=== PATIENT | female | born 1990 | race Caucasian/White ===

== ENCOUNTER → 2017-02-12 | Outpatient (CLI) | payer MEDICAID ==
[~2017-02-12] MED LIST: NAPR500T PO
--- NOTE | 2017-02-12 11:11 | REP ---
Clinical: Left lower quadrant pain. Technique: Real time ramirez scale ultrasound examination using curved array transducer Findings: The bilateral kidneys are normal in contour, size, echogenicity, and reniform shape without hydronephrosis, nephrolithiasis, cystic or renal mass lesion. No perinephric fluid collections are identified. Right kidney measures 12.9 x 6.1 x 6.3 cm. Left kidney measures 12.1 x 6.1 x 6.6 cm. The bladder is incompletely distended but grossly normal. Impression: Normal renal ultrasound. Signed by Jeevan Cabrera MD 02/12/2017 11:02 A
--- NOTE | 2017-02-12 12:03 | REP ---
Clinical: Left lower quadrant pain . Technique: Transabdominal pelvic ultrasound followed by transvaginal examination for better evaluation of the endometrium and adnexa with color Doppler evaluation of the ovaries. Findings: Bladder is unremarkable and measures 8.8 x 2.5 x 3.2 cm . Possibly septated retroverted uterus measures 7.4 x 3.6 x 5.8 cm . The endometrial complex measures 1.4 mm thickness. No discrete uterine or endometrial abnormalities are appreciated. Bilateral ovaries are normal in appearance and vascularity without evidence for torsion. Right ovary measures 4.4 x 2.5 x 4.3 cm with 1.8 cm dominant follicle ; R I = 0.38. Left ovary measures 3.2 x 1.9 x 2.6 cm ; R I = 0.55. Small amount of free fluid in the right lydia pelvis likely physiologic. Impression: Cannot exclude septate uterus. Otherwise normal pelvic ultrasound. Signed by Jeevan Cabrera MD 02/12/2017 11:54 A
== END ==
LOC: M RAD 09:59
PROVIDERS: ATTEND Family Medicine
DX: R10.32 Left lower quadrant pain (principal)

== ENCOUNTER 2017-02-14 20:38 | Emergency (ER) | payer MEDICAID ==
[~2017-02-14] VITALS: Ht 172.7 cm; Wt 88.8 kg
--- NOTE | 2017-02-14 21:29 | REP ---
Clinical: Left renal colic. Comparison: 02/16/2016. Findings: Lung bases are clear. Visualized heart and pericardium normal. Liver, spleen, pancreas, gallbladder, bilateral adrenal glands and kidneys are normal. No hydronephrosis, perinephric stranding, intrarenal or obstructing ureteral calculi are identified. The enteric system is without obstruction or acute inflammatory process. Normal terminal ileum and appendix identified in the right lower quadrant. Pelvis demonstrates normal bladder and age-appropriate uterus/adnexa. Trace pelvic free fluid is likely nonspecific and physiologic. Calcifications in the pelvis are stable and represent phleboliths. No ascites. No free air. No adenopathy. Abdominal aorta without aneurysm. Musculoskeletal structures within normal limits. Impression: No acute abdominopelvic pathology appreciated Signed by Jeevan Cabrera MD 02/14/2017 09:20 P
[2017-02-14] MEDS ORDERED: NAPR500T PO (21:41)
[2017-02-14 21:45] VITALS: BP 93/67
== END 2017-02-14 22:00 | disposition home or self-care (01) ==
LOC: M ED 20:38
DX: R10.9 Unspecified abdominal pain (principal); F17.210 Nicotine dependence, cigarettes, uncomplicated; Z87.442 Personal history of urinary calculi

== ENCOUNTER 2018-12-28 10:53 | Emergency (ER) | payer MEDICAID, OTHER ==
[~2018-12-28] VITALS: Ht 172.7 cm; Wt 89.3 kg
[~2018-12-28 10:53] MED LIST changes: +NAPR-837 PO; -NAPR500T PO
[2018-12-28] MEDS ORDERED: NS 1,000 ML IV ONE (11:30)
[2018-12-28] MEDS: ONDANSETRON 4MG/2ML VIAL (J2405) IV ONE ×2 (11:51→12:21)
[2018-12-28] MEDS: KETOROLAC 30 MG/ML VIAL (J1885) IV ONE ×2 (11:51→12:21)
[2018-12-28 12:33] LABS: BASO % 0.6 % (0.0-1.0); EOS # 0.1 10^3/uL (0.0-0.50); EOS % 2.7 % (0.0-3.0); HEMATOCRIT 41.3 % (36.0-47.0); HEMOGLOBIN 13.4 g/dl (12.0-15.5); LYMPH # 1.6 10^3/uL (1.5-4.5); LYMPH % 33.5 % (24.0-44.0); MEAN CORPUSCULAR HEMOGLOBIN 28.6 pg (27.0-33.0); MEAN CORPUSCULAR HGB CONC 32.4 g/dl (32.0-36.5); MEAN CORPUSCULAR VOLUME 88.2 fl (80.0-96.0); MONO # 0.6 10^3/uL (0.0-0.8); MONO % 11.8 % (0.0-5.0); NEUTROPHILS # 2.5 10^3/uL (1.8-7.7); NEUTROPHILS % 51.2 % (36.0-66.0); PLATELET COUNT, AUTOMATED 260 10^3/uL (150-450); RED BLOOD COUNT 4.68 10^6/uL (4.00-5.40); WHITE BLOOD COUNT 4.9 10^3/uL (4.0-10.0)
[2018-12-28 12:54] LABS: ALBUMIN 3.9 GM/DL (3.2-5.2); ALT/SGPT 39 U/L (12-78); BILIRUBIN,DIRECT < 0.1 MG/DL (0.0-0.2); BILIRUBIN,TOTAL 0.2 MG/DL (0.2-1.0); LIPASE 123 U/L (73-393); TOTAL PROTEIN 7.5 GM/DL (6.4-8.2)
[2018-12-28 13:13] VITALS: BP 116/77
--- NOTE | 2018-12-28 13:14 | REP ---
HISTORY: Left lower quadrant pain. History of renal calculi. COMPARISON: 02/14/2017, which was normal. The lung bases are clear and unchanged. Limited evaluation of the solid intraabdominal organs and gallbladder show no gross abnormalities or significant changes from the prior exam. Limited evaluation of the pancreas, adrenal glands, and left kidney show no gross abnormalities or significant changes from the prior exam. There is a 2 mm sized calcification in the interpolar region of the right kidney, which is not causing obstructive phenomenon. There is very mild left-sided hydroureter with slight periureteral edema. There is a calcification within the urinary bladder on the left measuring 4 mm. This represents a change from the prior exam. Incidental note is made of unchanged pelvic phleboliths. There is no free fluid or free air in the abdomen or pelvis. The intraabdominal and intrapelvic bowel loops and their mesenteries are within normal limits and essentially unchanged. There is no intraabdominal or intrapelvic mass or adenopathy. The osseous structure is stable and intact. IMPRESSION: There is mild left-sided hydroureter and periureteral edema, likely secondary to a 4 mm sized calculus which has passed and now resides in the urinary bladder. There is a tiny 2 mm sized calcification in the interpolar region of the right kidney which is not causing obstructive phenomenon. Electronically Signed by Gómez Ken DO 12/28/2018 01:22 P
== END 2018-12-28 13:22 | disposition home or self-care (01) ==
LOC: M ED 10:53
DX: N21.0 Calculus in bladder (principal); N20.0 Calculus of kidney; R11.0 Nausea; Z87.440 Personal history of urinary (tract) infections; Z87.442 Personal history of urinary calculi; K27.9 Peptic ulcer, site unspecified, unspecified as acute or chronic, without hemorrhage or perforation; F17.210 Nicotine dependence, cigarettes, uncomplicated
CPT/HCPCS: 74176; 80047; 80076; 81001; 83690; 84702; 85025; 96361; 96374; 96375; 99284; J1885; J2405

== ENCOUNTER → 2020-03-13 | Outpatient (REF) | payer OTHER | LOC: M LAB REF 07:09 | PROVIDERS: ATTEND Physician Assistant | DX: N39.0 Urinary tract infection, site not specified (principal) ==

== ENCOUNTER 2020-03-17 14:50 | Emergency (ER) | payer OTHER ==
[~2020-03-17 14:50] MED LIST changes: +KETOROLAC 30 MG/ML 1ML VIAL As Ordered ONE; +KETOROLAC 30 MG/ML 1ML VIAL ONE; +ONDANSETRON 4MG/2ML VIAL As Ordered ONE; +ONDANSETRON 4MG/2ML VIAL ONE
[2020-04-15 11:07] LABS: APPEARANCE, URINE CLEAR (CLEAR); BACTERIA, URINE AUTO 1+ (NEGATIVE); BILIRUBIN, URINE AUTO NEGATIVE (NEGATIVE); BLOOD, URINE BLOOD NEGATIVE (NEGATIVE); COLOR, URINE STRAW (YELLOW); GLUCOSE, URINE (UA) AUTO NEGATIVE (NEGATIVE); KETONE, URINE AUTO NEGATIVE (NEGATIVE); LEUKOCYTE ESTERASE, URINE AUTO NEGATIVE (NEGATIVE); NITRITE, URINE AUTO NEGATIVE (NEGATIVE); PROTEIN, URINE AUTO NEGATIVE (NEGATIVE); RBC, URINE AUTO 1 /HPF (0-3); SPECIFIC GRAVITY URINE AUTO 1.003 (1.002-1.035); UROBILINOGEN, URINE AUTO 0.2 mg/dL (0.0-2.0); WBC, URINE AUTO 1 /HPF (0-3)
[2020-04-15 11:23] LABS: BASO % 0.6 % (0.0-1.0); EOS # 0.1 10^3/uL (0.0-0.5); HEMATOCRIT 43.7 % (36.0-47.0); HEMOGLOBIN 14.4 g/dl (12.0-15.5); LYMPH # 1.4 10^3/uL (1.5-5.0); LYMPH % 19.8 % (24.0-44.0); MEAN CORPUSCULAR HEMOGLOBIN 28.9 pg (27.0-33.0); MEAN CORPUSCULAR VOLUME 87.6 fl (80.0-96.0); MONO # 0.5 10^3/uL (0.0-0.8); MONO % 6.6 % (0.0-5.0); NEUTROPHILS # 5.1 10^3/uL (1.5-8.5); NEUTROPHILS % 71.7 % (36.0-66.0); PLATELET COUNT, AUTOMATED 296 10^3/uL (150-450); RED BLOOD COUNT 4.99 10^6/uL (4.00-5.40); WHITE BLOOD COUNT 7.1 10^3/uL (4.0-10.0)
[2020-05-01 18:27] LABS: ALBUMIN 4.2 GM/DL (3.2-5.2); ALT/SGPT 30 U/L (12-78); BILIRUBIN,DIRECT < 0.1 MG/DL (0.0-0.2); BILIRUBIN,TOTAL 0.3 MG/DL (0.2-1.0); BLOOD UREA NITROGEN 10 MG/DL (7-18); CALCIUM LEVEL 9.7 MG/DL (8.5-10.1); CARBON DIOXIDE LEVEL 25 MEQ/L (21-32); CHLORIDE LEVEL 110 MEQ/L (98-107); CREATININE FOR GFR 0.74 MG/DL (0.55-1.30); GLOMERULAR FILTRATION RATE > 60.0 (>60); GLUCOSE, FASTING 98 MG/DL (70-100); LIPASE 95 U/L (73-393); POTASSIUM SERUM 4.3 MEQ/L (3.5-5.1); SODIUM LEVEL 140 MEQ/L (136-145); TOTAL PROTEIN 7.8 GM/DL (6.4-8.2)
[2020-05-01 18:41] LABS: HCG, SERUM QUALITATIVE NEGATIVE (NEGATIVE)
== END 2020-03-17 19:20 | disposition home or self-care (01) ==
LOC: M ED 14:50
DX: N20.0 Calculus of kidney (principal); Z87.442 Personal history of urinary calculi; F17.200 Nicotine dependence, unspecified, uncomplicated; J30.2 Other seasonal allergic rhinitis
CPT/HCPCS: 74176; 80048; 80076; 81001; 83690; 84703; 85025; 87086; 96361; 96374; 96375; 99284; J1885; J2405

== ENCOUNTER → 2020-04-12 | Outpatient (REF) | payer OTHER ==
[~2020-04-12] MED LIST changes: -KETOROLAC 30 MG/ML 1ML VIAL As Ordered ONE; -KETOROLAC 30 MG/ML 1ML VIAL ONE; -ONDANSETRON 4MG/2ML VIAL As Ordered ONE; -ONDANSETRON 4MG/2ML VIAL ONE
[2020-04-26 20:07] LABS: CA Oxalate Dihy 80 % (.)
== END ==
LOC: M LAB REF 17:03
PROVIDERS: ATTEND Nurse Practitioner Women's Health
DX: N20.0 Calculus of kidney (principal)

== ENCOUNTER 2020-10-27 15:52 | Emergency (ER) | payer OTHER ==
[~2020-10-27] VITALS: Ht 172.7 cm; Wt 88.6 kg
[2020-10-27] MEDS ORDERED: LIDOCAINE 5% (LIDODERM) PATCH TD ONE (17:15)
--- NOTE | 2020-10-27 18:05 | REPVR ---
PROCEDURE INFORMATION: Exam: CT Lumbar Spine Without Contrast Exam date and time: 10/27/2020 5:50 PM Age: 30 years old Clinical indication: Low back pain; Additional info: R low back pain radiating to rle TECHNIQUE: Imaging protocol: Computed tomography images of the lumbar spine without contrast. Radiation optimization: All CT scans at this facility use at least one of these dose optimization techniques: automated exposure control; mA and/or kV adjustment per patient size (includes targeted exams where dose is matched to clinical indication); or iterative reconstruction. COMPARISON: No relevant prior studies available. FINDINGS: Vertebrae: No acute fracture. Normal alignment. L1-L2: No significant disc protrusion. No severe spinal canal stenosis. No significant neural foraminal narrowing. L2-L3: No significant disc protrusion. No spinal canal stenosis. No neural foraminal narrowing. L3-L4: No significant disc protrusion. No severe spinal canal stenosis. No significant neural foraminal narrowing. L4-L5: No significant disc protrusion. No severe spinal canal stenosis. No significant neural foraminal narrowing. L5-S1: Right posterior disc herniation L5-S1 compresses and posteriorly displaces the right S1 nerve root. Soft tissues: Unremarkable. IMPRESSION: Right posterior disc herniation L5-S1 compresses and posteriorly displaces the right S1 nerve root. Electronically signed by: Umberto Lemon On 10/27/2020 18:05:46 PM
[2020-10-27] MEDS ORDERED: NORCO, ANEXSIA 5/325MG TABLET (HYDROcodone/ACETAMINOPHEN) PO ONE (19:05)
[2020-10-27] MEDS ORDERED: CYCLOBENZAPRINE 10MG TABLET PO ONE (19:05)
[2020-10-27] MEDS ORDERED: predniSONE 20 MG TAB PO ONE (19:05)
[2020-10-27 20:02] VITALS: BP 118/68
[2020-10-27] MEDS ORDERED: PRED20TA PO (20:13)
[2020-10-27] MEDS ORDERED: CYCL5TAB PO (20:13)
[2020-10-27] MEDS ORDERED: NORCO 5/325MG TABLET (BULK FOR ED) PO ONE (20:20)
[2020-10-27] MEDS ORDERED: **NOTE PATIENT COMMENT** MISC XX SCH (21:00)
== END 2020-10-27 20:31 | disposition home or self-care (01) ==
LOC: M ED 15:52
DX: M51.27 Other intervertebral disc displacement, lumbosacral region (principal); S39.012A Strain of muscle, fascia and tendon of lower back, initial encounter; X58.XXXA Exposure to other specified factors, initial encounter; Y92.89 Other specified places as the place of occurrence of the external cause; F17.210 Nicotine dependence, cigarettes, uncomplicated

== ENCOUNTER → 2020-11-23 | Outpatient (CLI) | payer OTHER ==
[~2020-11-23] MED LIST changes: +CYCL5TAB PO; +PRED20TA PO
--- NOTE | 2020-11-23 13:07 | REP ---
INDICATION: LBP. COMPARISON: CT lumbar spine 10/27/2020. TECHNIQUE: Sagittal T1, T2, STIR, and axial T1 and T2 weighted images of the lumbar spine obtained. FINDINGS: There is minimal degenerative disc disease. Vertebral heights and disc heights are overall preserved. No malalignments. On the sagittal T2 weighted images, no limiting canal stenosis. Conus ends normally at L1 level. On the review of axial images, at L1-2 through L3-4 no significant canal or foraminal narrowing At L4-5 is a disc bulge eccentric to the left with moderate left foraminal narrowing mild canal narrowing and no significant right foraminal narrowing. At L5-S1 there is an unusual appearance of the S1 vertebrae, which appears with superior and inferior endplate depressions on the left. At the level of these depressions, an apparent disc herniation contacts the exiting S1 nerve root. 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 IMPRESSION: 1. Minimal degenerative disc disease. 2. 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 3. At L4-5 left-sided disc protrusion with moderate left foraminal narrowing. <Electronically signed by Sai Luke > 11/23/20 [id number]
== END ==
LOC: M PLARAD 09:54
PROVIDERS: ATTEND Orthopaedic Surgery
DX: M51.27 Other intervertebral disc displacement, lumbosacral region (principal)

== ENCOUNTER → 2022-02-15 | Outpatient (CLI) | payer OTHER ==
[2022-02-15 10:21] LABS: PLATELET COUNT, AUTOMATED 298 10^3/uL (150-450)
[2022-02-15 10:47] LABS: INR 0.92; PROTHROMBIN TIME 12.8 SECONDS (12.7-14.5)
[2022-02-15 10:48] LABS: PARTIAL THROMBOPLASTIN TIME 30.2 SECONDS (25.9-37.0)
[2022-02-15 10:57] LABS: HCG, SERUM QUALITATIVE NEGATIVE (NEGATIVE)
== END ==
LOC: M LAB 09:47
PROVIDERS: ATTEND Physical Medicine & Rehabilitation
DX: M51.16 Intervertebral disc disorders with radiculopathy, lumbar region (principal)

== ENCOUNTER 2022-08-14 18:18 | Emergency (ER) | payer OTHER ==
[~2022-08-14] VITALS: Ht 175.3 cm; Wt 90.9 kg
[2022-08-14 18:18] VITALS: BP 131/82
== END 2022-08-14 20:32 | disposition home or self-care (01) ==
LOC: M ED 18:18
DX: Z71.1 Person with feared health complaint in whom no diagnosis is made (principal); F17.200 Nicotine dependence, unspecified, uncomplicated; Z87.442 Personal history of urinary calculi; Z79.891 Long term (current) use of opiate analgesic

== ENCOUNTER → 2022-10-31 | Outpatient (CLI) | payer OTHER | LOC: M WHC 08:39 | PROVIDERS: ATTEND Family Medicine | DX: N60.19 Diffuse cystic mastopathy of unspecified breast (principal) ==

== ENCOUNTER → 2022-11-01 | Outpatient (CLI) | payer OTHER ==
[2022-11-01 09:56] LABS: BASO # 0.1 10^3/uL (0.0-0.2); BASO % 0.9 % (0.0-1.0); EOS # 0.2 10^3/uL (0.0-0.5); EOS % 3.1 % (0.0-3.0); HEMATOCRIT 43.4 % (36.0-47.0); HEMOGLOBIN 14.3 g/dl (12.0-15.5); LYMPH # 1.9 10^3/uL (1.5-5.0); MEAN CORPUSCULAR HEMOGLOBIN 28.8 pg (27.0-33.0); MEAN CORPUSCULAR HGB CONC 32.9 g/dl (32.0-36.5); MEAN CORPUSCULAR VOLUME 87.3 fl (80.0-96.0); MONO # 0.5 10^3/uL (0.0-0.8); MONO % 9.2 % (2.0-8.0); NEUTROPHILS # 2.9 10^3/uL (1.5-8.5); NEUTROPHILS % 51.6 % (36.0-66.0); PLATELET COUNT, AUTOMATED 287 10^3/uL (150-450); RED BLOOD COUNT 4.97 10^6/uL (4.00-5.40); WHITE BLOOD COUNT 5.6 10^3/uL (4.0-10.0)
[2022-11-01 10:35] LABS: ALKALINE PHOSPHATASE 74 U/L (46-116); ALT/SGPT 23 U/L (7.0-40); AST/SGOT 20 U/L (<34); BILIRUBIN,TOTAL 0.5 MG/DL (0.3-1.2); BLOOD UREA NITROGEN 12 MG/DL (9-23); CALCIUM LEVEL 9.4 MG/DL (8.5-10.1); CARBON DIOXIDE LEVEL 30 MMOL/L (20-31); CHLORIDE LEVEL 105 MMOL/L (98-107); CHOLESTEROL LEVEL 154 MG/DL (<200); CREATININE FOR GFR 0.71 MG/DL (0.55-1.30); GLOMERULAR FILTRATION RATE > 60.0 (>60); GLUCOSE, FASTING 85 MG/DL (60-100); HDL CHOLESTEROL 53.1 MG/DL (>40); LDL CHOLESTEROL 79.9 MG/DL (<100); NON-HDL-C 100.9 MG/DL; POTASSIUM SERUM 4.1 MMOL/L (3.5-5.1); SODIUM LEVEL 140 MMOL/L (136-145); THYROID STIMULATING HORMONE 2.568 uIU/ML (0.55-4.78); TOTAL PROTEIN 6.9 G/DL (5.7-8.2); TRIGLYCERIDES LEVEL 105 MG/DL (<150)
== END ==
LOC: M LAB 08:30
PROVIDERS: ATTEND Family Medicine
DX: E66.8 Other obesity (principal)

== ENCOUNTER → 2023-10-10 | Outpatient (CLI) | payer OTHER | LOC: M WHC 07:59 | PROVIDERS: ATTEND Family Medicine | DX: N60.11 Diffuse cystic mastopathy of right breast (principal); N63.41 Unspecified lump in right breast, subareolar ==

== ENCOUNTER → 2024-02-25 | Outpatient (CLI) | payer OTHER ==
[2024-02-25 15:07] LABS: BASO # 0.1 10^3/uL (0.0-0.2); BASO % 0.8 % (0.0-1.0); EOS # 0.1 10^3/uL (0.0-0.5); EOS % 1.3 % (0.0-3.0); HEMATOCRIT 41.9 % (36.0-47.0); HEMOGLOBIN 13.6 g/dl (12.0-15.5); LYMPH # 2.1 10^3/uL (1.5-5.0); LYMPH % 34.6 % (24.0-44.0); MEAN CORPUSCULAR HEMOGLOBIN 28.3 pg (27.0-33.0); MEAN CORPUSCULAR HGB CONC 32.5 g/dl (32.0-36.5); MEAN CORPUSCULAR VOLUME 87.1 fl (80.0-96.0); MONO # 0.4 10^3/uL (0.0-0.8); MONO % 6.2 % (2.0-8.0); NEUTROPHILS # 3.4 10^3/uL (1.5-8.5); NEUTROPHILS % 56.8 % (36.0-66.0); PLATELET COUNT, AUTOMATED 278 10^3/uL (150-450); RED BLOOD COUNT 4.81 10^6/uL (4.00-5.40)
[2024-02-25 15:23] LABS: URIC ACID 3.1 MG/DL (3.1-7.8)
[2024-02-25 15:25] LABS: C REACTIVE PROTEIN QUANTITATIV < 0.40 MG/DL (<1.0); ERYTHROCYTE SEDIMENTATION RATE 12 mm/hr (0-20)
[2024-02-25 15:27] LABS: ALBUMIN 3.9 G/DL (3.2-5.2); ALKALINE PHOSPHATASE 78 U/L (46-116); ALT/SGPT 21 U/L (7.0-40); AST/SGOT 11 U/L (<34); BILIRUBIN,TOTAL 0.3 MG/DL (0.3-1.2); BLOOD UREA NITROGEN 12 MG/DL (9-23); CALCIUM LEVEL 9.6 MG/DL (8.5-10.1); CARBON DIOXIDE LEVEL 28 MMOL/L (20-31); CHLORIDE LEVEL 107 MMOL/L (98-107); CHOLESTEROL LEVEL 176 MG/DL (<200); CHOLESTEROL RISK RATIO 3.67 (<5); GLOMERULAR FILTRATION RATE > 60.0 (>60); GLUCOSE, FASTING 95 MG/DL (60-100); HDL CHOLESTEROL 47.9 MG/DL (>40); LDL CHOLESTEROL 91.3 MG/DL (<100); NON-HDL-C 128.1 MG/DL; RHEUMATOID FACTOR QUANT < 3.5 IU/ML (<14); SODIUM LEVEL 139 MMOL/L (136-145); TOTAL PROTEIN 6.6 G/DL (5.7-8.2); TRIGLYCERIDES LEVEL 184 MG/DL (<150)
[2024-02-25 15:30] LABS: FREE T4 1.11 NG/DL (0.89-1.76); THYROID STIMULATING HORMONE 2.348 uIU/ML (0.55-4.78); TOTAL 25(OH) VITAMIN D 39.3 NG/ML (20.0-100.0)
== END ==
LOC: M LAB 13:46
PROVIDERS: ATTEND Family Medicine
DX: M25.50 Pain in unspecified joint (principal); E66.9 Obesity, unspecified; G56.21 Lesion of ulnar nerve, right upper limb; E55.9 Vitamin D deficiency, unspecified

== ENCOUNTER → 2025-04-09 | Outpatient (REF) | payer BC, OTHER ==
[~2025-04-09] MED LIST changes: -CYCL5TAB PO; +CYCL5TAB4 PO
== END ==
LOC: M LAB REF 17:07
PROVIDERS: ATTEND Student in an Organized Health Care Education/Training Program
DX: R30.0 Dysuria (principal)

== ENCOUNTER 2025-07-28 16:14 | Emergency (ER) | payer BC ==
[~2025-07-28] VITALS: Ht 175.3 cm; Wt 101.4 kg
[2025-07-28] MEDS: NS 500 ML IV ONE (17:22)
[2025-07-28] MEDS: ACETAMINOPHEN *IV* 1,000 MG in IV 1 EA IV ONE (17:22)
[2025-07-28] MEDS: diphenhydrAMINE 50 MG/ML VIAL IV STA (17:23)
[2025-07-28 18:43] VITALS: BP 100/55; TEMP 97.2; O2SAT 99
== END 2025-07-28 19:10 | disposition home or self-care (01) ==
LOC: M ED 16:14
DX: R51.9 Headache, unspecified (principal); Z87.442 Personal history of urinary calculi; Z79.52 Long term (current) use of systemic steroids; Z79.899 Other long term (current) drug therapy
CPT/HCPCS: 70450; 87486; 87581; 87633; 87798; 96365; 96375; 99284; J0134; J1200; J2765